=== PATIENT | female | born 1990 | race Caucasian/White ===

== ENCOUNTER → 2016-08-22 | Outpatient (CLI) | payer BC ==
[~2016-08-22] MED LIST: ETONMIS VAGRING; NAPR1TAB9 PO; ONDA4TAB10 SL; OXYC-57 PO; OXYC1TAB3 PO; ZOLP10TA PO
[2016-08-22 15:58] LABS: PREG INTERNAL NEGATIVE QC NEG CLEAR BACKGROUND; PREG INTERNAL POSITIVE QC POS CONTROL LINE
== END | disposition home or self-care (01) ==
LOC: C.LAB1850 14:49
PROVIDERS: ATTEND Physician Assistant
DX: N92.6 Irregular menstruation, unspecified (principal)

== ENCOUNTER → 2016-08-22 | Outpatient (CLI) | payer BC | END | disposition home or self-care (01) | LOC: C.PAPS 08:35 | PROVIDERS: ATTEND Physician Assistant | DX: Z01.419 Encounter for gynecological examination (general) (routine) without abnormal findings (principal) ==

== ENCOUNTER → 2017-03-04 | Outpatient (CLI) | payer OTHER | END | disposition home or self-care (01) | LOC: C.LABSPEC 15:43 | PROVIDERS: ATTEND Physician Assistant | DX: Z20.2 Contact with and (suspected) exposure to infections with a predominantly sexual mode of transmission (principal); L29.8 Other pruritus ==

== ENCOUNTER 2017-03-12 21:18 | Emergency (ER) | payer OTHER ==
[~2017-03-12] VITALS: Ht 175.3 cm; Wt 63.8 kg
[2017-03-12 21:25] VITALS: TEMP 37.1; Ht 175.3 cm; Wt 63.8 kg
[2017-03-12] MEDS ORDERED: KETOROLAC TROMETHAMINE 30 MG/ML VIAL IV STA (21:32)
[2017-03-12] MEDS ORDERED: ONDANSETRON INJ 2 MG/ML 2 ML VIAL IV STA (21:32)
[2017-03-12] MEDS ORDERED: ZOLP10TA PO (22:07)
[2017-03-12] MEDS ORDERED: ETONMIS VAGRING (22:07)
[2017-03-12] MEDS ORDERED: NAPR1TAB9 PO (22:07)
[2017-03-12 22:10] LABS: BASO % 0.2 %; BASO ABS # 0.03 K/uL (0-0.2); COMPLETE YES; EOS % 0.2 %; HEMATOCRIT 38.6 % (37-47); IG% 0.2 %; LYMPH % 36.7 %; LYMPH ABS # 4.43 K/uL (1.2-3.4); MEAN CELL VOLUME 90.8 fL (80-100); MEAN CORPUSCULAR HEMOGLOBIN 31.3 pg (25-34); MEAN CORPUSCULAR HGB CONC 34.5 g/dl (32-36); MONO % 5.5 %; NEUT % 57.2 %; PLATELET COUNT 214 K/uL (130-400); RED BLOOD COUNT 4.25 M/uL (4.2-5.4); WHITE BLOOD COUNT 12.08 K/uL (4.8-10.8)
[2017-03-12 22:20] LABS: BUN/CREATININE RATIO 20.2 (10-20); CALCIUM 8.9 mg/dl (8.5-10.1); CREATININE 0.71 mg/dl (0.60-1.20); POTASSIUM 3.2 mmol/L (3.5-5.1)
[2017-03-12 22:32] LABS: URINE APPEARANCE CLEAR (CLEAR); URINE BILIRUBIN NEG (NEG); URINE COLOR DK YELLOW; URINE NITRITE NEG (NEG); URINE PH 6.5 (4.5-7.5); URINE SPECIFIC GRAVITY 1.024 (1.000-1.030); UROBILINOGEN NEG (NEG); ZZUR CULT IF INDIC CLEAN CATCH NO
[2017-03-12 22:38] LABS: PREG INTERNAL NEGATIVE QC NEG CLEAR BACKGROUND; PREG INTERNAL POSITIVE QC POS CONTROL LINE
[2017-03-12 22:39] LABS: MANUAL MICROSCOPIC REQUIRED? NO; REVIEW REQ? NO
[2017-03-12] MEDS ORDERED: POTASSIUM CHLORIDE 10 MEQ TABCR PO STA (22:39)
--- NOTE | 2017-03-12 23:06 | DIAGNOSTIC IMAGING REPORT ---
PELVIC COMPLETE NON OB HISTORY: 27 years-old Female pelvic pain, hx cyst, ? torsion acute pelvic pain COMPARISON: None available TECHNIQUE: Multiple real-time sonographic images of the deep pelvic structures were obtained transabdominally and transvaginally assessing grayscale appearance, color and spectral flow FINDINGS: Uterus measures 7.3 x 4.1 x 4.7 cm. Endometrium measures 2.4 mm. No myometrial mass lesion. Nabothian cysts noted. Right ovary measures 7.2 x 6.3 x 6.8 cm. There is a large cyst within the right ovary measuring up to 6.9 cm which appears simple. Arterial inflow within the right ovary is documented. Left ovary measures 2.7 x 1.5 x 2.2 cm with arterial inflow documented. No left ovarian mass lesions identified. 0.2 cm echogenicity of the left ovary is not shadowing and may reflect a calcification. No mass identified to suggest ovarian dermoid. No significant free pelvic fluid. IMPRESSION: 1. Large cyst of the right ovary measures up to 6.9 cm. No evidence of associated torsion. Follow-up ultrasound in 6-8 weeks or within 2 menstrual cycles recommended to document resolution. 2. Unremarkable sonographic appearance of the uterus and endometrium. 3. Nonspecific 0.2 cm echogenicity of the left ovary suggests calcification. The above report was generated using voice recognition software. It may contain grammatical, syntax or spelling errors. Electronically signed by: Roge Gonzalez M.D. 03/12/2017 11:04 PM Dictated Date/Time: 03/12/2017 11:01 PM
[2017-03-12] MEDS ORDERED: OXYCODONE HCL IR 5 MG TAB (IMMEDIATE RELEASE) PO STA (23:20)
[2017-03-13] MEDS ORDERED: ONDA4TAB10 SL (00:09)
[2017-03-13] MEDS ORDERED: OXYC1TAB3 PO (00:09)
[2017-03-13 00:13] VITALS: BP 115/80; PULSE 72; O2SAT 99
[2017-03-13] MEDS ORDERED: ONDANSETRON HOME PACK 4MG OD TAB PO ONE (00:15)
[2017-03-13] MEDS ORDERED: OXYCODONE IR HOME PACK PO ONE (00:15)
--- NOTE | 2017-03-13 03:37 | EMERGENCY ROOM VISIT NOTE ---
History First contact with patient: 21:24 Chief Complaint: PELVIC PAIN Stated Complaint: PELVIC PAIN History of Present Illness The patient is a 27 year old female who presents to the Emergency Room with complaints of severe abdominal pain with a known ovarian cyst from last week's ultrasound from the OB office at [facility]. Pain described as cramping, ranging in severity 6 out of 10. Nothing makes it better or worse. Does not radiate. Patient had negative STI testing last week. She does not feel at risk for STIs. Patient states because of the pain she did have an episode of vomiting. She is tolerating fluids. Patient denies chest pain, dyspnea, fever , chills, cough, congestion, urinary symptoms, vaginal itching or discharge. Review of Systems See HPI for pertinent positives & negatives. A total of 10 systems reviewed and were otherwise negative. Past Medical/Surgical History None Social History Smoking Status: Current Every Day Smoker Alcohol Use: occasionally Drug Use: marijuana Occupation Status: employed Current/Historical Medications Scheduled Etonogestrel/Ethinyl Estradiol (Nuvaring), 1 EA VAGRING MONTHLY Naproxen (Aleve), 440 MG PO PRN UD Ondasetron Odt (Zofran Odt), 4 MG SL Q6H Scheduled PRN Oxycodone Immediate Rel Tab (Roxicodone Ir), 1-2 TAB PO Q4H PRN for Severe Pain Zolpidem Tartrate (Ambien), 10 MG PO HS PRN for Sleep Physical Exam Vital Signs Date Time Temp Pulse Resp B/P (MAP) Pulse Ox O2 Delivery O2 Flow Rate FiO2 03/13/17 00:13 72 18 115/80 99 Room Air 03/12/17 23:10 73 18 119/75 99 Room Air 03/12/17 21:25 37.1 92 18 146/106 99 Room Air Physical Exam VITALS: Vitals are noted on the nurse's note and reviewed by myself. Vital signs stable. GENERAL: Pleasant female, in no acute distress, nondiaphoretic, well-developed well-nourished. SKIN: Capillary reflex less than 2 seconds. HEENT: Normocephalic. PERRLA. EOMI. Nares patent. Mucous membranes moist. Neck is supple without nuchal rigidity. HEART: Regular rate and rhythm without murmurs gallops or rubs. LUNGS: Clear to auscultation bilaterally without wheezes, rales or rhonchi. No retractions or accessory muscle use. ABDOMEN: Positive bowel sounds x 4. Normal tympanic percussion. Soft, tender to palpation suprapubic region, no CVA tenderness, without masses or organomegaly. Davalos sign negative. No guarding or rebound tenderness. MUSCULOSKELETAL: No gross musculoskeletal defects. NEURO: Patient was alert and oriented to person place and time. Normal sensation to light and sharp touch. No focal neurological deficits. Medical Decision & Procedures Laboratory Results 03/12/17 21:55 Red Blood Count 4.25, Mean Corpuscular Volume 90.8, Mean Corpuscular Hemoglobin 31.3, Mean Corpuscular Hemoglobin Concent 34.5, Mean Platelet Volume 10.0, Neutrophils (%) (Auto) 57.2, Lymphocytes (%) (Auto) 36.7, Monocytes (%) (Auto) 5.5, Eosinophils (%) (Auto) 0.2, Basophils (%) (Auto) 0.2, Neutrophils # (Auto) 6.90, Lymphocytes # (Auto) 4.43, Monocytes # (Auto) 0.67, Eosinophils # (Auto) 0.03, Basophils # (Auto) 0.03 03/12/17 21:55 Test 03/12/17 21:50 03/12/17 21:55 Urine Color DK YELLOW Urine Appearance CLEAR (CLEAR) Urine pH 6.5 (4.5-7.5) Urine Specific [place] 1.024 (1.000-1.030) Urine Protein NEG (NEG) Urine Glucose (UA) NEG (NEG) Urine Ketones NEG (NEG) Urine Occult Blood NEG (NEG) Urine Nitrite NEG (NEG) Urine Bilirubin NEG (NEG) Urine Urobilinogen NEG (NEG) Urine Leukocyte Esterase NEG (NEG) White Blood Count 12.08 K/uL (4.8-10.8) Red Blood Count 4.25 M/uL (4.2-5.4) Hemoglobin 13.3 g/dL (12.0-16.0) Hematocrit 38.6 % (37-47) Mean Corpuscular Volume 90.8 fL (80-100) Mean Corpuscular Hemoglobin 31.3 pg (25-34) Mean Corpuscular Hemoglobin Concent 34.5 g/dl (32-36) Platelet Count 214 K/uL (130-400) Mean Platelet Volume 10.0 fL (7.4-10.4) Neutrophils (%) (Auto) 57.2 % Lymphocytes (%) (Auto) 36.7 % Monocytes (%) (Auto) 5.5 % Eosinophils (%) (Auto) 0.2 % Basophils (%) (Auto) 0.2 % Neutrophils # (Auto) 6.90 K/uL (1.4-6.5) Lymphocytes # (Auto) 4.43 K/uL (1.2-3.4) Monocytes # (Auto) 0.67 K/uL (0.11-0.59) Eosinophils # (Auto) 0.03 K/uL (0-0.5) Basophils # (Auto) 0.03 K/uL (0-0.2) RDW Standard Deviation 42.3 fL (36.4-46.3) RDW Coefficient of Variation 12.8 % (11.5-14.5) Immature Granulocyte % (Auto) 0.2 % Immature Granulocyte # (Auto) 0.02 K/uL (0.00-0.02) Anion Gap 7.0 mmol/L (3-11) Est Creatinine Clear Calc Drug Dose 119.9 ml/min Estimated GFR () 135.3 Estimated GFR (Non- 116.7 BUN/Creatinine Ratio 20.2 (10-20) Calcium Level 8.9 mg/dl (8.5-10.1) Human Chorionic Gonadotropin, Qual NEG (NEG) Medications Administered Medications (Trade) Dose Ordered Sig/Johann Route Start Time Stop Time Status Last Admin Dose Admin Ketorolac Tromethamine (Toradol Inj) 30 mg NOW STAT IV 03/12/17 21:32 03/12/17 21:34 DC 03/12/17 22:11 30 MG Ondansetron HCl (Zofran Inj) 4 mg NOW STAT IV 03/12/17 21:32 03/12/17 21:34 DC 03/12/17 22:12 4 MG Potassium Chloride (Klor-Con M10) 30 meq NOW STAT PO 03/12/17 22:39 03/12/17 22:40 DC 03/12/17 23:07 30 MEQ Oxycodone HCl (Roxicodone Immediate Rel Tab) 5 mg NOW STAT PO 03/12/17 23:20 03/12/17 23:21 DC 03/12/17 23:25 5 MG ED Course Prior records/ancillary studies reviewed. Triage Nursing notes reviewed. Additional history obtained from friend The patient's history was concerning for suprapubic abdominal pain. Differential diagnosis: Etiologies such as ovarian cyst, ovarian torsion, , appendicitis, diverticulitis, PUD, biliary pathology, UTI, pancreatitis, obstruction, mesenteric ischemia, aortic pathology, infections, inflammatory bowel disease, renal colic, as well as others were entertained. Physical examination findings: As above. ER treatment provided: Toradol, Zofran, OxyIR On reassessment the patient felt better. Diagnostics interpreted by me: The labs revealed hypokalemia and this is replaced orally, negative hCG Imaging studies: PELVIC COMPLETE NON OB HISTORY: 27 years-old Female pelvic pain, hx cyst, ? torsion acute pelvic pain COMPARISON: None available TECHNIQUE: Multiple real-time sonographic images of the deep pelvic structures were obtained transabdominally and transvaginally assessing grayscale appearance, color and spectral flow FINDINGS: Uterus measures 7.3 x 4.1 x 4.7 cm. Endometrium measures 2.4 mm. No myometrial mass lesion. Nabothian cysts noted. Right ovary measures 7.2 x 6.3 x 6.8 cm. There is a large cyst within the right ovary measuring up to 6.9 cm which appears simple. Arterial inflow within the right ovary is documented. Left ovary measures 2.7 x 1.5 x 2.2 cm with arterial inflow documented. No left ovarian mass lesions identified. 0.2 cm echogenicity of the left ovary is not shadowing and may reflect a calcification. No mass identified to suggest ovarian dermoid. No significant free pelvic fluid. IMPRESSION: 1. Large cyst of the right ovary measures up to 6.9 cm. No evidence of associated torsion. Follow-up ultrasound in 6-8 weeks or within 2 menstrual cycles recommended to document resolution. 2. Unremarkable sonographic appearance of the uterus and endometrium. 3. Nonspecific 0.2 cm echogenicity of the left ovary suggests calcification. The above report was generated using voice recognition software. It may contain grammatical, syntax or spelling errors. Electronically signed by: Roge Gonzalez M.D. Consultation: A consultation was placed with the OB, Dr. Patrick. The case was discussed and diagnostics were reviewed. She recommends discharge with outpatient follow-up. Exam and history seem consistent with right ovarian cyst. Patient had no signs of torsion. She is well-appearing. She is advised to repeat her pelvic ultrasound 6 weeks for resolution of cyst and to follow-up with OB in a few days for reevaluation or here in the ER sooner for severe pain, fevers, vomiting , worsening signs or symptoms or as needed. Patient did not have an acute abdomen on exam. She is well-appearing. She is tolerating fluids By the evaluation outlined above emergent etiologies such as appendicitis, diverticulitis, PUD, biliary pathology, UTI, pancreatitis, obstruction, mesenteric ischemia, aortic pathology, infections, inflammatory bowel disease, renal colic, as well as others were deemed relatively unlikely. The pt informed about the findings as listed above. All questions were answered and pleased with the treatment. Return instructions were outlined and the patient was discharged in stable condition. Outpatient prescription management: Esme WillIR Referral: The patient was referred back to their OCEANOGRAPHER [facility] for follow-up in 2 to 3 days for a recheck of the current condition. Case reviewed with my attending Medical Decision As above [place] Drug Monitoring Program Search Results: patient reviewed within database, no issues identified Medication Reconcilliation Current Medication List: was personally reviewed by me Blood Pressure Screening Patient's blood pressure: Normal blood pressure Impression Primary Impression: Right ovarian cyst Additional Impression: Hypokalemia Departure Information Dispostion Home / Self-Care Condition GOOD Prescriptions Ondasetron Odt (ZOFRAN ODT) 4 Mg Tab 4 MG SL Q6H, #10 TAB Prov: Jodie Carrington PA-C 03/13/17 Oxycodone Immediate Rel Tab (ROXICODONE IR) 5 Mg Tab 1-2 TAB PO Q4H Y for Severe Pain, #10 TAB Prov: Jodie Carrington PA-C 03/13/17 Forms WORK / SCHOOL INSTRUCTIONS, HOME CARE DOCUMENTATION FORM, Days off work : 2 Work Instructions, IMPORTANT VISIT INFORMATION Patient Instructions My [facility], ED Cyst Ovarian Additional Instructions DO NOT drive, drink alcohol, operate machinery, or perform dangerous activities today. You were given medications in the ER that can affect your ability to safely function or operate a vehicle. Recommend repeat pelvic ultrasound in 6 weeks for resolution of cyst. Rest. Stay well hydrated. No strenuous activity until symptoms resolve. Zofran 4 tablet every 6 hours as needed for nausea and vomiting. Oxycodone (OxyIR) 5mg: Take 1-2 pills every four hours for breakthrough pain. Avoid alcohol, operating machinery or dangerous equipment, working on ladders or roofs, DRIVING, or situations where being under the influence may be dangerous. It is recommended to use an [id number] stool softener such as Colace, 100mg twice daily while taking this medication to avoid constipation. Ibuprofen(Motrin, Advil) may be used for fever or pain. Use 600mg every six hours as needed. Take with food. Avoid using more than 2400mg in a 24 hour period. Do not use 2400mg per day for more than three consecutive days without physician direction. Prolonged inappropriate use can lead to stomach upset or ulcers. (AND/OR) Acetaminophen(Tylenol) may be used for fever or pain. Use 1000mg every six hours as needed. Avoid using more than 3000mg in a 24 hour period. Rest and drink plenty of fluids as tolerated. Continue current medications. Return to the ER immediately for severe pain, heavy vaginal bleeding, abdominal pain, vomiting, fevers, chest pains, difficulty breathing, worsening of your condition, or as needed. Follow up with your OCEANOGRAPHER PH[facility] in 2-3 days for a recheck of your current condition. Problem Qualifiers
== END 2017-03-13 00:17 | disposition home or self-care (01) ==
LOC: C.EDB 21:21
DX: R10.2 Pelvic and perineal pain (principal); N83.201 Unspecified ovarian cyst, right side; F17.210 Nicotine dependence, cigarettes, uncomplicated; E87.6 Hypokalemia

== ENCOUNTER 2017-03-27 23:34 | Emergency (ER) | payer OTHER ==
[~2017-03-27] VITALS: Ht 175.3 cm; Wt 63.0 kg
[~2017-03-27 23:34] MED LIST changes: -OXYC-57 PO
[2017-03-27 23:41] VITALS: TEMP 37.2; Ht 175.3 cm; Wt 63.0 kg
--- NOTE | 2017-03-28 00:07 | EMERGENCY ROOM VISIT NOTE ---
History Report prepared by Cyrus: Peter Patton Under the Supervision of: Dr. Rudi Salazar M.D. First contact with patient: 23:48 Chief Complaint: ABDOMINAL PAIN Stated Complaint: OVARIAN CYST History of Present Illness The patient is a 27 year old female who presents to the Emergency Room with complaints of constant abdominal pain beginning two weeks ago. The patient states that she was diagnosed with a 7cm ovarian cyst two weeks ago and has been having abdominal pain since. She notes that her pain has not improved, prompting her visit the emergency department today. She reports that her pain worsens when she moves around and lifts things while at work. The patient states that she took an Aleve with no improvement of her symptoms. She notes that she is currently on the NuvaRing and had her last normal menstrual period 8 months ago. She denies any chance of , any unusual vaginal discharge , SOB, chest pain, LOC, urinary problems, and diarrhea. She reports that she is currently experiencing mild nausea. Source of History: patient Onset: two weeks ago Position: abdomen Timing: constant Modifying Factors (Worsening): exertion Associated Symptoms: + nausea (mild), No LOC, No chest pain, No SOB, No diarrhea, No urinary symptoms Note: she denies any unusual vaginal discharge Review of Systems See HPI for pertinent positives & negatives. A total of 10 systems reviewed and were otherwise negative. Past Medical & Surgical Medical Problems: (1) Ovarian cyst Family History No pertinent family history stated. Social History Smoking Status: Current Every Day Smoker Alcohol Use: occasionally Drug Use: marijuana Occupation Status: employed Current/Historical Medications Scheduled Etonogestrel/Ethinyl Estradiol (Nuvaring), 1 EA VAGRING MONTHLY Naproxen (Aleve), 440 MG PO PRN UD Ondasetron Odt (Zofran Odt), 4 MG SL Q6H Scheduled PRN Oxycodone Immediate Rel Tab (Roxicodone Ir), 1-2 TAB PO Q4H PRN for Severe Pain Zolpidem Tartrate (Ambien), 10 MG PO HS PRN for Sleep Allergies Coded Allergies: No Known Allergies (Unverified , 03/27/17) Physical Exam Vital Signs Date Time Temp Pulse Resp B/P (MAP) Pulse Ox O2 Delivery O2 Flow Rate FiO2 03/28/17 02:08 75 18 119/71 98 Room Air 03/28/17 01:28 73 18 126/81 98 Room Air 03/27/17 23:41 37.2 104 20 130/90 99 Room Air Physical Exam GENERAL: Patient is well appearing and in mild distress. HEENT: No acute trauma, normocephalic atraumatic, mucous membranes moist, no nasal congestion, no scleral icterus. NECK: No stridor, no adenopathy, no meningismus, trachea is midline. LUNGS: No dyspnea. Clear to auscultation and equal bilaterally. No wheeze, no rhonchi. HEART: Regular rate and rhythm. No murmurs, rubs, gallops appreciated. ABDOMEN: Soft, tenderness to palpation over right pelvis, bowel sounds positive , no masses appreciated, no peritonitis. BACK: No midline tenderness, no CVA tenderness EXTREMITIES: Normal motion all extremities, no cyanosis, no edema. NEUROLOGIC: Alert and oriented, no acute motor or sensory deficits, no focal weakness, cranial nerves grossly intact. SKIN: No rash, no jaundice, no diaphoresis. Medical Decision & Procedures ER Provider Diagnostic Interpretation: Radiology results and stated below per my review and radiologist interpretation: US PELVIC/ENDOVAG: Compared to As noted previously, there is a large simple cyst of the right ovary. This is essentially stable is size, currently measuring 6.3cm maximally. No sonographic findings of torsion. Radiologist: Norris Burks M.D. Laboratory Results 03/28/17 00:01 Red Blood Count 4.00, Mean Corpuscular Volume 91.5, Mean Corpuscular Hemoglobin 31.3, Mean Corpuscular Hemoglobin Concent 34.2, Mean Platelet Volume 10.1, Neutrophils (%) (Auto) 38.6, Lymphocytes (%) (Auto) 52.8, Monocytes (%) (Auto) 7.1, Eosinophils (%) (Auto) 0.9, Basophils (%) (Auto) 0.4, Neutrophils # (Auto) 3.09, Lymphocytes # (Auto) 4.23, Monocytes # (Auto) 0.57, Eosinophils # (Auto) 0.07, Basophils # (Auto) 0.03 03/28/17 00:01 Test 03/28/17 00:01 03/28/17 00:08 White Blood Count 8.01 K/uL (4.8-10.8) Red Blood Count 4.00 M/uL (4.2-5.4) Hemoglobin 12.5 g/dL (12.0-16.0) Hematocrit 36.6 % (37-47) Mean Corpuscular Volume 91.5 fL (80-100) Mean Corpuscular Hemoglobin 31.3 pg (25-34) Mean Corpuscular Hemoglobin Concent 34.2 g/dl (32-36) Platelet Count 215 K/uL (130-400) Mean Platelet Volume 10.1 fL (7.4-10.4) Neutrophils (%) (Auto) 38.6 % Lymphocytes (%) (Auto) 52.8 % Monocytes (%) (Auto) 7.1 % Eosinophils (%) (Auto) 0.9 % Basophils (%) (Auto) 0.4 % Neutrophils # (Auto) 3.09 K/uL (1.4-6.5) Lymphocytes # (Auto) 4.23 K/uL (1.2-3.4) Monocytes # (Auto) 0.57 K/uL (0.11-0.59) Eosinophils # (Auto) 0.07 K/uL (0-0.5) Basophils # (Auto) 0.03 K/uL (0-0.2) RDW Standard Deviation 42.7 fL (36.4-46.3) RDW Coefficient of Variation 12.7 % (11.5-14.5) Immature Granulocyte % (Auto) 0.2 % Immature Granulocyte # (Auto) 0.02 K/uL (0.00-0.02) Anion Gap 4.0 mmol/L (3-11) Est Creatinine Clear Calc Drug Dose 109.1 ml/min Estimated GFR () 122.6 Estimated GFR (Non- 105.8 BUN/Creatinine Ratio 16.2 (10-20) Calcium Level 8.7 mg/dl (8.5-10.1) Human Chorionic Gonadotropin, Quant < 1 mIU/mL Urine Color YELLOW Urine Appearance CLEAR (CLEAR) Urine pH 5.5 (4.5-7.5) Urine Specific [place] 1.025 (1.000-1.030) Urine Protein NEG (NEG) Urine Glucose (UA) NEG (NEG) Urine Ketones TRACE (NEG) Urine Occult Blood NEG (NEG) Urine Nitrite NEG (NEG) Urine Bilirubin NEG (NEG) Urine Urobilinogen NEG (NEG) Urine Leukocyte Esterase NEG (NEG) Urine WBC (Auto) 1-5 /hpf (0-5) Urine RBC (Auto) 0-4 /hpf (0-4) Urine Hyaline Casts (Auto) 1-5 /lpf (0-5) Urine Epithelial Cells (Auto) >30 /lpf (0-5) Urine Bacteria (Auto) NEG (NEG) Urine Test NEG (NEG) Laboratory results as reviewed by me. Medications Administered Medications (Trade) Dose Ordered Sig/Johann Route Start Time Stop Time Status Last Admin Dose Admin Ketorolac Tromethamine (Toradol Inj) 30 mg NOW STAT IV 03/28/17 01:33 03/28/17 01:35 DC 03/28/17 01:38 30 MG ED Course 2331: The patient was evaluated in room B7. A complete history and physical exam was performed. 0120: I spoke to Dr. Mckeon. She will look over the patient's chart. 0133: Toradol Inj 30mg IV 0145: I reevaluated and updated the patient. She was given some Toradol and is feeling better. 0155: I spoke to Dr. Aicha Mckeon. The plan is to discharge the patient. Dr. Mckeon will specifically call the office in order to get the patient an appointment as soon as possible. 0211: I reevaluated and updated the patient. She if feeling better and is comfortable going home. 0215: Reevaluated the patient. Discussed results and discharge instructions: She verbalized understanding and agreement. The patient is ready for discharge. Medical Decision Differential: Appendicitis, Ovarian Torsion, PID, Tubo-ovarian Abscess, Intrauterine , Ectopic , Endometriosis, amongst other pathologies entertained. Pleasant 27 yr old female with two weeks right pelvic pain. Already found to have large right ovarian simple cyst. Received call from [employer] advising go to ED this evening and that they cancelled her Friday appointment due to sending to ED. She notes minimal pain unless up and moving around when pain increases drastically. No fevers, no RLQ pain, only right upper pelvic TTP. She is preg negative by blood. Labs unremarkable. US similar to previous. Reviewed at length with Dr Foy of [employer] who notes plan to see in outpatient and that she will make sure office sets up follow up soon. Patient comfortable with this plan. Given Toradol for some anti-inflammatory approach. Has Oxy IR at home. Is off work until this is figured out. Stable and breathing comfortably. She is aware of symptoms requiring return to ED. With normal vitals, no vomiting, and stable labs, I do not feel that this represents appendicitis nor pid/TOA. She is not in nearly enough discomfort for this to be active torsion and there is good blood flow on US. I suspect this is irritation of cyst. Reviewed at length symptoms requiring patient RTED. Medication Reconcilliation Current Medication List: was personally reviewed by me Blood Pressure Screening Patient's blood pressure: Normal blood pressure Consults Time Called: 0117 Consulting Physician: Dr. Mckeon - Obstetrics/Gynecology, [facility] Returned Call: 0120 Discussed the patient's case. The patient will be evaluated for further treatment and disposition. Impression Primary Impression: Right ovarian cyst Scribe Attestation The scribe's documentation has been prepared under my direction and personally reviewed by me in its entirety. I confirm that the note above accurately reflects all work, treatment, procedures, and medical decision making performed by me. Departure Information Dispostion Home / Self-Care Referrals Aicha Carlson M.D. Forms HOME CARE DOCUMENTATION FORM, IMPORTANT VISIT INFORMATION Patient Instructions ED Cyst Ovarian, My [facility]
[2017-03-28 00:18] LABS: HEMATOCRIT 36.6 % (37-47); MEAN CELL VOLUME 91.5 fL (80-100); MEAN CORPUSCULAR HEMOGLOBIN 31.3 pg (25-34); MEAN CORPUSCULAR HGB CONC 34.2 g/dl (32-36); MEAN PLATELET VOLUME 10.1 fL (7.4-10.4); PLATELET COUNT 215 K/uL (130-400); WHITE BLOOD COUNT 8.01 K/uL (4.8-10.8)
[2017-03-28 00:27] LABS: MANUAL MICROSCOPIC REQUIRED? NO; REVIEW REQ? NO; URINE APPEARANCE CLEAR (CLEAR); URINE BILIRUBIN NEG (NEG); URINE COLOR YELLOW; URINE EPITHELIAL CELL AUTO >30 /lpf (0-5); URINE NITRITE NEG (NEG); URINE PH 5.5 (4.5-7.5); URINE SPECIFIC GRAVITY 1.025 (1.000-1.030); UROBILINOGEN NEG (NEG); ZZUR CULT IF INDIC CLEAN CATCH NO
[2017-03-28 00:40] LABS: BASO % 0.4 %; BASO ABS # 0.03 K/uL (0-0.2); BUN/CREATININE RATIO 16.2 (10-20); CALCIUM 8.7 mg/dl (8.5-10.1); COMPLETE YES; CREATININE 0.77 mg/dl (0.60-1.20); EOS % 0.9 %; IG% 0.2 %; LYMPH % 52.8 %; LYMPH ABS # 4.23 K/uL (1.2-3.4); MONO % 7.1 %; NEUT % 38.6 %; POTASSIUM 3.4 mmol/L (3.5-5.1)
[2017-03-28] MEDS ORDERED: KETOROLAC TROMETHAMINE 30 MG/ML VIAL IV STA (01:33)
[2017-03-28 02:08] VITALS: BP 119/71; PULSE 75; O2SAT 98
--- NOTE | 2017-03-28 09:19 | DIAGNOSTIC IMAGING REPORT ---
PELVIC ULTRASOUND, TRANSABDOMINAL AND TRANSVAGINAL HISTORY: right ovarian cyst, continued pain, sent by Camera Repair Technician COMPARISON: Pelvic ultrasound 03/12/2017. FINDINGS: Uterus: Unremarkable. Endometrial stripe: 1 mm in thickness. Right ovary: There is again noted a large simple cyst within the right ovary which is similar in size compared to the prior study measuring up to 6.3 cm. The surrounding ovarian parenchyma is thinned due to the large cyst but appears to demonstrate color flow. Left ovary: Normal in size and demonstrates normal color flow. Miscellaneous:No pelvic free fluid. IMPRESSION: 1. No significant change in the 6.3 cm simple cyst within the right ovary. No sonographic evidence for torsion at this time. Of note, ovarian torsion is technically a clinical finding. 2. Normal uterus and left ovary. Electronically signed by: Richard Munoz M.D. 03/28/2017 7:39 AM Dictated Date/Time: 03/28/2017 7:36 AM
== END 2017-03-28 02:17 | disposition home or self-care (01) ==
LOC: C.EDB 23:36
DX: N83.201 Unspecified ovarian cyst, right side (principal); Z79.3 Long term (current) use of hormonal contraceptives; F17.200 Nicotine dependence, unspecified, uncomplicated; F12.90 Cannabis use, unspecified, uncomplicated

== ENCOUNTER → 2017-04-14 | Outpatient (CLI) | payer OTHER ==
[~2017-04-14] MED LIST changes: +OXYC-57 PO
[2017-04-14 12:42] LABS: BASO % 0.3 %; BASO ABS # 0.02 K/uL (0-0.2); COMPLETE YES; EOS % 2.3 %; HEMATOCRIT 37.7 % (37-47); IG% 0.3 %; LYMPH % 29.3 %; LYMPH ABS # 2.34 K/uL (1.2-3.4); MEAN CELL VOLUME 93.3 fL (80-100); MEAN CORPUSCULAR HEMOGLOBIN 31.7 pg (25-34); MEAN PLATELET VOLUME 10.9 fL (7.4-10.4); MONO % 5.9 %; NEUT % 61.9 %; PLATELET COUNT 207 K/uL (130-400); RED BLOOD COUNT 4.04 M/uL (4.2-5.4); WHITE BLOOD COUNT 7.99 K/uL (4.8-10.8)
== END | disposition home or self-care (01) ==
LOC: C.LAB 10:38
PROVIDERS: ATTEND Obstetrics & Gynecology
DX: Z01.812 Encounter for preprocedural laboratory examination (principal)

== ENCOUNTER → 2017-04-18 | Day surgery (SDC) | payer OTHER ==
[~2017-04-18] VITALS: Ht 175.3 cm; Wt 63.6 kg
[~2017-04-18] MED LIST changes: +ACETAMINOPHEN 325 MG TAB PO PRN; +ATROPINE SULFATE 0.1 MG/ML 5ML SYR IV PRN; +BUPIVACAINE 0.5 % 5 MG/1 ML MPF 30ML VIAL ONE; +DEXAMETHASONE SOD INJ 4 MG/ML VIAL ONE; +EpHEDrine SULFATE INJ 50 MG/ML AMP IV PRN; +FENTANYL CITRATE INJ 50 MCG/1 ML 2 ML VIAL ONE; +HYDROmorphone INJ 0.5 MG/0.5 ML SYR IV PRN; +HYDROmorphone INJ 2 MG/ML SYR/VIAL ONE; +IBUPROFEN 200 MG TAB PO PRN; +KETAMINE HCL INJ 50 MG/ML 10 ML VIAL ONE; +KETOROLAC TROMETHAMINE 30 MG/ML VIAL IV. PRN; +LABETALOL HCL IV 5 MG/ML 20ML IV PRN; +LACTATED RINGER'S 1000ML 1,000 ML IV SCH; +MEPERIDINE HCL 25 MG/ML CARP IV PRN; +METHYLENE BLUE 0.5% 10 ML VIAL ONE; +MIDAZOLAM HCL 1 MG/ML 2ML VIAL ONE; +MoRPHine SULFATE 2 MG/ML CARP IV PRN; +MoRPHine SULFATE 4 MG/ML 1 ML CARP\\VIAL IV PRN; -ONDA4TAB10 SL; +ONDANSETRON INJ 2 MG/ML 2 ML VIAL IV PRN; +ONDANSETRON INJ 2 MG/ML 2 ML VIAL ONE; -OXYC1TAB3 PO; +OXYCODONE/ACETAMINOPHEN 5-325 TAB PO PRN; +PROPOFOL IV EMULSION 10 MG/ML 20 ML VIAL IV ONE
[2017-04-18 11:05] VITALS: BP 114/79; PULSE 92; TEMP 37.2; O2SAT 100; Ht 175.3 cm; Wt 63.6 kg
--- NOTE | 2017-04-18 12:45 | History & Physical Bridge Note ---
H&P Re-Evaluation Bridge Note: I have examined the patient, reviewed the History & Physical and in the interval since the performance of the History & Physical I have noted the following changes of clinical significance: No changes noted
--- NOTE | 2017-04-18 14:46 | [facility] Post Operative Brief Note ---
Immediate Operative Summary Operative Date Apr 18, 2017. Pre-Operative Diagnosis 1. Cyst of ovary 2. Female pelvic pain Post-Operative Diagnosis 1. Cyst of ovary 2. Female pelvic pain 3. Endometriosis Procedure(s) Performed Right Laparoscopic Ovarian cystectomy, Fulgeration of endometriosis Kennyi Surgeon Dr. Evelyne Scott Sales Attendant Surgeon(s) Dr. Meche Mart Estimated Blood Loss 50 mL Findings uterus was normal size and shape. tubes normal bilaterally. some physiologic adhesions of the right bowel to the lateral abdominal wall. nl liver edge. left ovary normal. right ovary with large 5cm cystic structure that ruptured to release clear fluid. endometriosis of the posterior cul de sac. Fluids (cc crystalloids) 100cc Specimens Permanent specimens A: Right ovarian cyst wall Drains none Anesthesia gett Complication(s) None Disposition Recovery Room / PACU
--- NOTE | 2017-04-18 14:48 | Discharge Instructions ---
Discharge Instructions Date of Service Apr 18, 2017. Visit Reason for Visit: Bilateral Ovarian Cysts, Pelvic Pain Discharge Discharge Diagnosis / Problem: s/p right ovarian cystectomy Discharge Goals Goal(s): Specific goals Activity Recommendations Activity Limitations: per Instructions/Follow-up section Anesthesia . Post Anesthesia Instructions: If you have had General Anesthesia or IV Sedation: * Do not drive today. * Resume driving when surgeon permits. * Do not make important decisions or sign legal documents today. * Call surgeon for: 1. Temperature elevations greater than 101 degrees F. 2. Uncontrollable pain. 3. Excessive bleeding. 4. Persistent nausea and vomiting. 5. Medication intolerance (nausea, vomiting or rash). * For nausea and vomiting use only clear liquids such as: tea, soda, bouillon until nausea subsides, then gradually increase diet as tolerated. * If you have any concerns or questions, call your surgeon's office. If physician is unavailable and it is an emergency, call 911 or go to the nearest emergency room. . Instructions / Follow-Up Instructions / Follow-Up ACTIVITY RECOMMENDATIONS: * Rest the first 2-3 days. You should be back to your normal activity levels by day 3. * No heavy lifting for 2 weeks. * No intercourse, tampons or douching for 1-2 weeks. * You may shower the next day. * Do not drive anytime that you are taking narcotic pain medicines. RETURN TO SCHOOL/WORK: * May return to school or work after 2-3 days. DIET: Nausea may occur in the immediate post-operative period. If so, take clear liquids such as tea, bouillon, apple juice until all nausea has subsided, then resume usual diet. MEDICATIONS: Resume previous medications unless instructed otherwise by your surgeon. Ibuprofen 200mg 2-3 tablets every 4-6 hours as needed -- OR -- Aleve 2 tablets every 8-12 hours as needed for post-operative discomfort Medications are over the counter. Tylenol may be used if above medications are contraindicated or not preferred. Medication should be taken with food or milk. Do not take on an empty stomach. SPECIAL CARE INSTRUCTIONS: * Check temperature twice daily for one week. report any elevation over 101 degrees. * You may experience some vagina spotting and/or bleeding. This is normal for 1 -2 weeks and should not be heavier than a normal period. If it is unusual in amount, call your physician. * Post-operative discomfort may consist of a sore throat, a "bloated" feeling and pain in the shoulders. these are normal symptoms, which usually only last for 2-3 days. * Remove band-aids tomorrow and shower. There is no need to replace band-aids unless there is drainage or discomfort. FOLLOW UP VISIT: Call your doctor's office for a post-operative 2 week visit if not already scheduled. Diet Recommendations Recommended Home Diet: no limitations, resume previous diet Procedures Procedures Performed: Right Laparoscopic Ovarian cystectomy, Fulgeration of endometriosis daVinci Pending Studies Studies pending at discharge: no Medical Emergencies . Who to Call and When: Medical Emergencies: If at any time you feel your situation is an emergency, please call 911 immediately. . Non-Emergent Contact Non-Emergency issues call your: [employer]st[employer] Supervisor . . "Provider Documentation" section prepared by Evelyne Scott. . [place] Drug Monitoring Program Search Results: patient reviewed within database, no issues identified
[2017-04-18] MEDS: FENTANYL CITRATE INJ 50 MCG/1 ML 2 ML VIAL IV PRN ×4 (15:01→15:16)
--- NOTE | 2017-04-18 15:39 | OPERATIVE REPORT ---
DATE OF OPERATION: 04/18/2017 PREOPERATIVE DIAGNOSES: 1. Persistent right ovarian cyst. 2. Pelvic pain. POSTOPERATIVE DIAGNOSES: 1. Persistent right ovarian cyst. 2. Pelvic pain. 3. Peritoneal endometriosis. PROCEDURES: 1. Laparoscopy with da Jessee assisted right cystectomy. 2. Fulguration of endometriosis. SURGEON: Dr. Scott. RECRUITMENT ADVERTISING MANAGER: Dr. Mart. ANESTHESIA: General per endotracheal tube. ESTIMATED BLOOD LOSS: 50 mL. FLUIDS: 1100 mL. URINE OUTPUT: 200 mL clear yellow urine drained from the bladder at the end of the procedure. INDICATIONS: The patient is a 27-year-old 0 with persistent right simple complex appearing cyst that this has been associated with pain where she has not been able to work and has persisted for minimum of 6 weeks. FINDINGS: Right ovary with a large 5-6 cm simple-appearing ovarian cyst that was unfortunately ruptured during the course of the procedure for release of clear fluid. Left ovary normal, tubes normal, uterus normal. Liver edge normal. There were some physiologic adhesions to the anterior abdominal wall of some bowel. There was some endometriosis in the posterior cul-de-sac. COMPLICATIONS: None. DRAINS: Fraga. DISPOSITION: To recovery room in stable condition. PROCEDURE: The patient was taken to the operating room where she was identified verbally and by bracelet. She was placed in dorsal supine position where general anesthesia was induced without difficulty. She was then [facility] in the [facility] Her arms were carefully tucked and protected at her sides. Her chest was protected with padding. Head moth exterminator was placed and she was prepped and draped in normal sterile fashion. Time-out was held identifying correct patient, procedure and positioning. No preoperative antibiotics were required. Attention was turned to the vagina where a Fraga catheter was placed. An exam under anesthesia revealed a 5 cm adnexal mass that was mobile. There were no findings in the left adnexa. The uterus small anterior anteverted and mobile. Speculum was placed in the vagina. The anterior lip of the cervix was grasped with a single tooth tenaculum. A [employer] uterine manipulator was placed into the cervix to serve as a means of manipulation. The speculum removed. Gloves were then changed. Attention was then turned to the abdomen where an infraumbilical incision was made with a knife. Veress needle was placed through this. Opening pressure of 5 mmHg. Abdomen insufflated with 3 liters of carbon dioxide gas and a 10 mm trocar was placed through this and direct intra-abdominal placement was confirmed visually. The patient was then placed into Trendelenburg and right and left da Jessee 8 mm trocars were placed in bilateral lower quadrants under direct visualization. Examination of the pelvis revealed the above noted findings with a large cystic structure of the right ovary. The da Jessee surgical dental assistant device was then connected to the patient and the grinder and honer operator automatic proceeded to the console. On the antimesenteric side of the uterus an incision was made, scored with the hot otis. This was opened with scissors and then using traction and countertraction and undermining of the ovarian wall the ovarian cyst was shelled out to approximately [address] and then was unfortunately ruptured to release copious amounts of clear fluid. The fluid was drained. The cyst wall was then completely removed from the ovary and was removed through the right lower quadrant trocar under direct visualization. Then using cautery, bleeding edges and bleeding sites in the base of the ovary were attended to until hemostasis was noted to be excellent. Then using cautery the endometriosis that was noted in the posterior cul-de-sac was fulgurated. This ended the procedure. The attention was turned to the abdomen where the da Jessee surgical dental assistant device was removed from the patient, the gas was released from the abdomen. The trocars were removed. A deep [id number] suture was placed at the umbilical incision and all incisions were closed with 4-0 Vicryl in subcuticular fashion. All incisions were infiltrated with 0.5% Marcaine. Instruments removed from the vagina and hemostasis was noted to be excellent. All sponge, lap and needle counts were correct x2. The patient tolerated the procedure well and was taken to recovery room in stable condition. I attest to the content of the Intraoperative Record and any orders documented therein. Any exception s are noted below.
--- NOTE | 2017-04-18 15:51 | Anesthesiology Progress Note ---
Anesthesia Post Op Note Date & Time Apr 18, 2017 at 15:50 Vital Signs Pain Intensity: 7 Vital Signs Past 12 Hours Date Time Temp Pulse Resp B/P (MAP) Pulse Ox O2 Delivery O2 Flow Rate FiO2 04/18/17 15:25 36.6 62 16 103/79 (82) 97 Room Air 04/18/17 15:14 65 15 100 04/18/17 15:14 66 15 04/18/17 15:14 65 15 100 04/18/17 15:14 66 15 04/18/17 15:10 110/73 04/18/17 15:10 110/73 04/18/17 15:09 78 19 100 04/18/17 15:09 78 19 04/18/17 15:09 78 19 04/18/17 15:09 78 19 100 04/18/17 15:06 100/78 04/18/17 15:06 100/78 04/18/17 15:04 71 20 04/18/17 15:04 71 20 04/18/17 15:04 72 20 100 04/18/17 15:04 72 20 100 04/18/17 15:00 113/77 04/18/17 15:00 113/77 04/18/17 14:59 69 10 04/18/17 14:59 69 10 100 04/18/17 14:59 69 10 04/18/17 14:59 69 10 100 04/18/17 14:55 116/80 04/18/17 14:55 116/80 04/18/17 14:54 75 10 100 04/18/17 14:54 75 10 04/18/17 14:54 75 10 100 04/18/17 14:54 75 10 04/18/17 14:51 113/82 04/18/17 14:51 113/82 04/18/17 14:49 90 15 100 04/18/17 14:49 90 15 100 04/18/17 14:49 91 15 04/18/17 14:49 91 15 04/18/17 14:45 132/82 04/18/17 14:45 132/82 04/18/17 14:44 99 13 04/18/17 14:44 99 13 137/67 100 04/18/17 14:44 99 13 04/18/17 14:44 99 13 137/67 100 04/18/17 14:44 36.1 99 10 137/67 (94) 100 Oxymask 10 04/18/17 11:05 37.2 92 18 114/79 (91) 100 Room Air Notes Mental Status: alert / awake / arousable, participated in evaluation Pt Amnestic to Procedure: Yes Nausea / Vomiting: adequately controlled Pain: adequately controlled Airway Patency, RR, SpO2: stable & adequate BP & HR: stable & adequate Hydration State: stable & adequate Anesthetic Complications: no major complications apparent
[2017-04-18 16:15] VITALS: BP 113/67; PULSE 53; TEMP 36.4; O2SAT 100
[2017-04-18 16:48] VITALS: BP 119/68; PULSE 70; O2SAT 99
[2017-04-18 17:15] VITALS: BP 134/77; PULSE 62; TEMP 36.3; O2SAT 100
== END | disposition home or self-care (01) ==
LOC: C.ACU 10:36
PROVIDERS: ATTEND Obstetrics & Gynecology
DX: N83.201 Unspecified ovarian cyst, right side (principal); N80.3 Endometriosis of pelvic peritoneum; G43.009 Migraine without aura, not intractable, without status migrainosus; F17.200 Nicotine dependence, unspecified, uncomplicated; Z79.899 Other long term (current) drug therapy
CPT/HCPCS: 58662; S2900

== ENCOUNTER → 2017-04-22 | Outpatient (CLI) | payer OTHER ==
[~2017-04-22] MED LIST changes: -ACETAMINOPHEN 325 MG TAB PO PRN; -ATROPINE SULFATE 0.1 MG/ML 5ML SYR IV PRN; -BUPIVACAINE 0.5 % 5 MG/1 ML MPF 30ML VIAL ONE; -DEXAMETHASONE SOD INJ 4 MG/ML VIAL ONE; -EpHEDrine SULFATE INJ 50 MG/ML AMP IV PRN; -FENTANYL CITRATE INJ 50 MCG/1 ML 2 ML VIAL ONE; -HYDROmorphone INJ 0.5 MG/0.5 ML SYR IV PRN; -HYDROmorphone INJ 2 MG/ML SYR/VIAL ONE; -IBUPROFEN 200 MG TAB PO PRN; -KETAMINE HCL INJ 50 MG/ML 10 ML VIAL ONE; -KETOROLAC TROMETHAMINE 30 MG/ML VIAL IV. PRN; -LABETALOL HCL IV 5 MG/ML 20ML IV PRN; -LACTATED RINGER'S 1000ML 1,000 ML IV SCH; -MEPERIDINE HCL 25 MG/ML CARP IV PRN; -METHYLENE BLUE 0.5% 10 ML VIAL ONE; -MIDAZOLAM HCL 1 MG/ML 2ML VIAL ONE; -MoRPHine SULFATE 2 MG/ML CARP IV PRN; -MoRPHine SULFATE 4 MG/ML 1 ML CARP\\VIAL IV PRN; -ONDANSETRON INJ 2 MG/ML 2 ML VIAL IV PRN; -ONDANSETRON INJ 2 MG/ML 2 ML VIAL ONE; -OXYCODONE/ACETAMINOPHEN 5-325 TAB PO PRN; -PROPOFOL IV EMULSION 10 MG/ML 20 ML VIAL IV ONE
[2017-04-22 15:21] LABS: BASO % 0.2 %; BASO ABS # 0.02 K/uL (0-0.2); EOS % 2.3 %; HEMATOCRIT 33.8 % (37-47); IG% 0.1 %; LYMPH % 43.2 %; LYMPH ABS # 3.53 K/uL (1.2-3.4); MEAN CELL VOLUME 91.6 fL (80-100); MEAN CORPUSCULAR HEMOGLOBIN 31.2 pg (25-34); MEAN PLATELET VOLUME 10.1 fL (7.4-10.4); MONO % 4.9 %; NEUT % 49.3 %; PLATELET COUNT 210 K/uL (130-400); RED BLOOD COUNT 3.69 M/uL (4.2-5.4); WHITE BLOOD COUNT 8.18 K/uL (4.8-10.8)
[2017-04-22 15:34] LABS: COMPLETE YES
== END | disposition home or self-care (01) ==
LOC: C.LAB1850 14:55
PROVIDERS: ATTEND Obstetrics & Gynecology
DX: R10.2 Pelvic and perineal pain (principal)

== ENCOUNTER → 2017-08-28 | Outpatient (CLI) | payer OTHER | END | disposition home or self-care (01) | LOC: C.PAPS 14:34 | PROVIDERS: ATTEND Obstetrics & Gynecology | DX: Z01.419 Encounter for gynecological examination (general) (routine) without abnormal findings (principal) ==

== ENCOUNTER → 2017-10-06 | Outpatient (CLI) | payer OTHER ==
[2017-10-06 15:43] LABS: BASO % 0.3 %; BASO ABS # 0.02 K/uL (0-0.2); HEMATOCRIT 39.2 % (37-47); HEMOGLOBIN 13.3 g/dL (12.0-16.0); IG# 0.01 K/uL (0.00-0.02); LYMPH % 44.9 %; LYMPH ABS # 3.37 K/uL (1.2-3.4); MEAN CORPUSCULAR HEMOGLOBIN 31.9 pg (25-34); MEAN CORPUSCULAR HGB CONC 33.9 g/dl (32-36); MEAN PLATELET VOLUME 10.4 fL (7.4-10.4); MONO % 6.8 %; MONO ABS # 0.51 K/uL (0.11-0.59); NEUT % 43.9 %; NEUT ABS # 3.29 K/uL (1.4-6.5); PLATELET COUNT 223 K/uL (130-400); RED CELL DISTRIBUTION WIDTH SD 44.8 fL (36.4-46.3)
[2017-10-06 16:06] LABS: ALBUMIN 3.9 gm/dl (3.4-5.0); ALKALINE PHOSPHATASE 48 U/L (45-117); ALT/SGPT 21 U/L (12-78); AST/SGOT 16 U/L (15-37); BLOOD UREA NITROGEN 11 mg/dl (7-18); CARBON DIOXIDE 23 mmol/L (21-32); CHOLESTEROL 218 mg/dl (0-200); CREATININE 0.79 mg/dl (0.60-1.20); GLUCOSE 82 mg/dl (70-99); LDL CHOLESTEROL CALCULATED 104 mg/dl; POTASSIUM 3.4 mmol/L (3.5-5.1); SODIUM 137 mmol/L (136-145); TOTAL PROTEIN 7.8 gm/dl (6.4-8.2)
== END | disposition home or self-care (01) ==
LOC: C.LAB1850 15:00
PROVIDERS: ATTEND Physician Assistant
DX: Z13.220 Encounter for screening for lipoid disorders (principal); F41.8 Other specified anxiety disorders